=== PATIENT | female | born 1965 | race Caucasian/White ===

== ENCOUNTER 2019-12-29 06:00 | Outpatient (RCR) | payer OTHER, SELFPAY | END 2020-01-15 23:59 | disposition home or self-care (01) | LOC: APT 06:00 | PROVIDERS: PCP Nurse Practitioner Family; Referring Provider Family Medicine; Visit Provider Family Medicine | DX: M75.101 Unspecified rotator cuff tear or rupture of right shoulder, not specified as traumatic (principal) | CPT/HCPCS: 97110; 97140; 97161 ==

== ENCOUNTER 2020-01-16 06:00 | Outpatient (RCR) | payer OTHER, SELFPAY | END 2020-02-14 23:59 | disposition home or self-care (01) | LOC: APT 06:00 | PROVIDERS: PCP Family Medicine; Referring Provider Family Medicine; Visit Provider Family Medicine | DX: M75.101 Unspecified rotator cuff tear or rupture of right shoulder, not specified as traumatic (principal) | CPT/HCPCS: 97110; 97140 ==

== ENCOUNTER 2020-01-27 12:37 | Outpatient (CLI) | payer OTHER, SELFPAY ==
--- NOTE | 2020-01-27 12:43 | US_ITS ---
WS: [id number] ULTRASOUND PELVIS TECHNIQUE: Transabdominal and transvaginal. ULTRASOUND PELVIS TECHNIQUE: Transabdominal. CLINICAL INFORMATION: PELVIC PAIN : No. COMPARISON: None. FINDINGS: Heterogeneous uterus likely due to small fibroids or adenomyosis. Orientation: Anteverted. Size: 9.5 cm x 5.9 cm x 4.5 cm. Cervix: Incidental nabothian cysts. Largest measures 1.7 x 1.7 cm Endometrium: Normal. Endometrium thickness: 0.7 cm. Adnexa: Normal. Right ovary size: 2.8 cm x 2.6 cm x 1.4 cm. Right ovary volume: 5.3 ccm3. Left ovary size: 2.4 cm x 1.5 cm x 1.5 cm. Left ovary volume: 2.9 ccm3 Free fluid: None. Other findings: None. US/US pelvic with transvaginal IMPRESSION: 1. Heterogeneous uterus likely due to small fibroids or adenomyosis. 2. Endometrium measures approximately 6.5 mm. 3. Ovaries are normal in appearance. Normal adnexa. 4. No free fluid in the cul-de-sac. 5. Incidental nabothian cysts.
== END 2020-01-27 12:38 | disposition home or self-care (01) ==
PROVIDERS: PCP Family Medicine; Visit Provider Family Medicine
DX: R10.2 Pelvic and perineal pain (principal); N88.8 Other specified noninflammatory disorders of cervix uteri
CPT/HCPCS: 76830; 76856

== ENCOUNTER 2020-02-29 08:23 | Outpatient (CLI) | payer OTHER, SELFPAY ==
--- NOTE | 2020-02-29 09:02 | MM_ITS ---
WS: [id number] Bilateral screening digital mammogram, 02/29/2020 Clinical Data: SCREENING Comparison: 02/04/2018, 01/01/2018, 12/16/2013, 11/24/2012, 05/27/2011, 01/12/2010, 12/29/2008. Findings: The breast parenchymal pattern shows fat replacement. No spiculated masses or clustered calcification s are seen. There are no secondary signs of carcinoma. There are 2 biopsy clips in the medial aspect of the left breast. MM/[id number] Impression: 1. Negative bilateral mammogram unchanged. 2. Recommend annual screening mammograms. BIRADS: 1-Negative FOLLOW UP: 1 Year Follow-up The CAD production checker was used.
== END 2020-02-29 08:24 | disposition home or self-care (01) ==
LOC: RADSHAW 08:25
PROVIDERS: PCP Family Medicine; Visit Provider Family Medicine
DX: Z12.31 Encounter for screening mammogram for malignant neoplasm of breast (principal)
CPT/HCPCS: 77067

== ENCOUNTER 2020-06-21 06:00 | Outpatient (RCR) | payer OTHER, SELFPAY | END 2020-07-14 23:59 | disposition home or self-care (01) | LOC: APT 06:00 | PROVIDERS: PCP Family Medicine; Referring Provider Family Medicine; Visit Provider Family Medicine | DX: M76.60 Achilles tendinitis, unspecified leg (principal) | CPT/HCPCS: 97110; 97140; 97161 ==

== ENCOUNTER 2020-06-21 06:00 | Outpatient (CLI) | payer OTHER, SELFPAY | END 2020-06-21 23:59 | disposition home or self-care (01) | LOC: SPT 06-23 13:06 | PROVIDERS: PCP Family Medicine; Referring Provider Family Medicine; Visit Provider Family Medicine | DX: Z46.89 Encounter for fitting and adjustment of other specified devices (principal); M76.60 Achilles tendinitis, unspecified leg | CPT/HCPCS: L3030 ==

== ENCOUNTER 2020-07-15 06:00 | Outpatient (RCR) | payer OTHER, SELFPAY | END 2020-08-14 23:59 | disposition home or self-care (01) | LOC: APT 06:00 | PROVIDERS: PCP Family Medicine; Referring Provider Family Medicine; Visit Provider Family Medicine | DX: M76.60 Achilles tendinitis, unspecified leg (principal) | CPT/HCPCS: 97530 ==

== ENCOUNTER 2020-09-14 10:12 | Outpatient (CLI) | payer OTHER, SELFPAY ==
--- NOTE | 2020-09-14 10:17 | XR_ITS ---
WS: [id number] Chest 2 views, 09/14/2020 Clinical Data: COUGH Comparison: None. Findings: No nodules, masses or effusions are seen. The heart is normal. The pulmonary vascularity is not increased. No pneumonia or pneumothorax is seen. There are clips in the right upper quadrant fro m a cholecystectomy. XR/XR chest 2V* [id number] Impression: Negative chest.
== END 2020-09-14 10:13 | disposition home or self-care (01) ==
PROVIDERS: PCP Family Medicine; Visit Provider Family Medicine
DX: R05 Cough (principal)
CPT/HCPCS: 71046